=== PATIENT | female | born 1950 | race Caucasian/White ===

== ENCOUNTER → 2016-04-28 | Outpatient (CLI) | payer OTHER | LOC: FIMAGING 15:14 | PROVIDERS: ATTEND Physician Assistant | DX: R06.02 Shortness of breath (principal); R91.1 Solitary pulmonary nodule; C43.9 Malignant melanoma of skin, unspecified ==

== ENCOUNTER → 2016-05-31 | Outpatient (CLI) | payer OTHER | LOC: FIMAGING 12:59 | PROVIDERS: ATTEND Nurse Practitioner | DX: R06.02 Shortness of breath (principal); R91.1 Solitary pulmonary nodule; Z85.820 Personal history of malignant melanoma of skin; Z79.52 Long term (current) use of systemic steroids ==

== ENCOUNTER 2016-09-24 05:53 | Inpatient (IN) | payer OTHER ==
[2016-09-24] MEDS ORDERED: GADOBUTROL 10 ML VIAL IVP ONE (06:04)
[2016-09-24] MEDS ORDERED: LR 1,000 ML IV ONE (06:12)
[2016-09-24] MEDS ORDERED: LIDOCAINE 1% 2 ML INJ ID PRN (06:12)
[2016-09-24 06:54] LABS: % IMMATURE GRANULYOCYTES 0.2 % (0.0-1.1); ABSOLUTE IMMATURE GRANULOCYTES 0.01 10^3/uL (0.00-0.10); ADD DIFF? NO; ADD MORPH? NO; ADD SCAN? NO; ATYPICAL LYMPHOCYTE FLAG 10 (0-99); FRAGMENT RBC FLAG 0 (0-99); HEMATOCRIT 40.2 % (38.0-47.0); HEMOGLOBIN 13.8 g/dL (12.6-16.3); LEFT SHIFT FLG 0 (0-99); LIPEMIA HEMOLYSIS FLAG 90 (0-99); MEAN CELL HEMOGLOBIN 30.7 pg (27.9-34.1); MEAN CELL HEMOGLOBIN CONCENTR. 34.3 g/dL (32.4-36.7); MEAN CELL VOLUME 89.5 fL (81.5-99.8); PLATELET CLUMPS FLAG 10 (0-99); PLATELET COUNT 163 10^3/uL (150-400); RED BLOOD CELL COUNT 4.49 10^6/uL (4.18-5.33); RED CELL DISTRIBUTION WIDTH 12.6 % (11.5-15.2)
[2016-09-24] MEDS ORDERED: CEFUROXIME 1,500 MG in NS 50 ML IV ONE (07:00)
[2016-09-24 07:02] LABS: INR 1.01 (0.83-1.16); PROTIME(PATIENT) 13.2 SEC (12.0-15.0)
[2016-09-24 07:03] LABS: APTT 27.1 SEC (23.0-38.0)
[2016-09-24 07:19] LABS: ANION GAP 11 mEq/L (8-16); CALCIUM 9.6 mg/dL (8.5-10.4); CARBON DIOXIDE 24 mEq/l (22-31); CHLORIDE 109 mEq/L (97-110); CREATININE 0.7 mg/dL (0.6-1.0); GLOMERULAR FILTRATION RATE > 60; GLUCOSE 86 mg/dL (70-100); POTASSIUM 3.9 mEq/L (3.5-5.2); SODIUM 144 mEq/L (134-144)
[2016-09-24] MEDS ORDERED: MANNITOL 20% 100 GM/500 ML BAG IV ONE (07:21)
[2016-09-24] MEDS ORDERED: THROMBIN (BOVINE) 20,000 UNIT VIAL TP ONE (07:21)
[2016-09-24] MEDS ORDERED: BACITRACIN 50,000 UNITS/10 ML SYR IRR ONE (07:22)
[2016-09-24] MEDS ORDERED: BUPIVACAINE/EPI 0.25% 30 ML SDV ONE (07:22)
[2016-09-24] MEDS ORDERED: AVITENE POWDER 1 GM JAR TP ONE (07:22)
[2016-09-24] MEDS ORDERED: MIDAZOLAM 2 MG/2 ML VIAL IVP ONE (08:20)
--- NOTE | 2016-09-24 08:20 | PDANEPAE ---
ANE History of Present Illness Posterior fossa craniotomy for metastatic melanoma ANE Past Medical History - Cardiovascular History Hx Hypertension: Yes Hx Arrhythmias: No Hx Chest Pain: No Hx Coronary Artery / Peripheral Vascular Disease: No Hx CHF / Valvular Disease: No Hx Palpitations: No Cardiovascular History Comment: pcp monitors bp meds - Pulmonary History Hx COPD: No Hx Asthma/Reactive Airway Disease: No Hx Recent Upper Respiratory Infection: No Hx Oxygen in Use at Home: No Hx Sleep Apnea: No Sleep Apnea Screening Result - Last Documented: Negative Pulmonary History Comment: current tumor in lung - Neurologic History Hx Cerebrovascular Accident: No Hx Seizures: No Hx Dementia: No Neurologic History Comment: hx of cervical fusion. current brain lesion - Endocrine History Hx Diabetes: No - Renal History Hx Renal Disorders: No - Liver History Hx Hepatic Disorders: No Hepatic History Comment: DX abn growth 08/22/14 - Neurological & Psychiatric Hx Hx Neurological and Psychiatric Disorders: Yes Neurological / Psychiatric History Comment: Anxiety. Depression - Cancer History Hx Cancer: Yes Cancer History Comment: Melanoma & basal face-surgery to remove. metastatic melanoma - Congenital Disorder History Hx Congenital Disorders: No - GI History Hx Gastrointestinal Disorders: No - Other Health History Other Health History: wears reading glasses still - Chronic Pain History Chronic Pain: No - Surgical History Prior Surgeries: 2 weeks ago bilateral cataracts. Cervical fusion. ORIF R wrist. MOHS x3 to nose with 2 reconstructive surg. R eyelid surg for CA - brain tumor removed ANE Review of Systems - Exercise capacity METS (RN): 4 METS ANE Patient History - Allergies Allergies/Adverse Reactions: ampicillin [Ampicillin] Allergy (Verified 09/20/16 10:13) Rash erythromycin base Allergy (Verified 09/20/16 10:13) UPSET STOMACH nitrofurantoin [From Macrobid] Allergy (Verified 09/20/16 10:13) Rash - Home Medications Home medications: home medication list seen and reviewed Home Medications: Metoprolol Succinate Xr [Toprol Xl 25 mg (*)] 12.5 mg PO DAILY 08/23/10 [Last Taken 09/23/16 19:00] LORazepam [Ativan (*)] 0.5 - 1 mg PO Q6 PRN 08/26/14 [Last Taken 09/24/16 02:30] Cholecalciferol Vit D3 [Vitamin D3 2000 units tab (OTC)] 2,000 units PO DAILY [Last Taken 09/21/16] Herbals/Supplements -Info Only 1 ea PO DAILY 09/20/16 [Last Taken 09/21/16] Magnesium Oxide [Magnesium Oxide 400 mg (*)] 400 mg PO DAILY 09/20/16 [Last Taken 09/21/16] [place]-3 Fatty Acids [Fish Oil 1000 mg (*)] 1,000 mg PO DAILY 09/20/16 [Last Taken 09/17/16] Vitamin B Complex [B Complex] 1 each PO DAILY 09/20/16 [Last Taken 09/21/16] - NPO status NPO Status: no food or drink >8 hours NPO Since - Liquids (Date): 09/23/16 NPO Since - Liquids (Time): 22:00 NPO Since - Solids (Date): 09/23/16 NPO Since - Solids (Time): 20:00 - Anes Hx Anes Hx: no prior problems - Smoking Hx Smoking Status: Never smoked - Family Anes Hx Family Anes Hx: none Family Hx Anesthesia Complications: none ANE Labs/Vital Signs - Labs Result Diagrams: 09/24/16 06:35 09/24/16 06:35 - Vital Signs Blood Pressure: 132/84 Heart Rate: 63 Respiratory Rate: 15 O2 Sat (%): 98 Height: 165.1 cm Weight: 51.256 kg ANE Physical Exam - Airway Neck exam: FROM Mallampati Score: Class 1 Mouth exam: normal dental/mouth exam - Pulmonary Pulmonary: no respiratory distress - Cardiovascular Cardiovascular: regular rate and rhythym - ASA Status ASA Status: III ANE Anesthesia Plan Anesthesia Plan: general endotracheal anesthesia Lines/Monitors: arterial line
[2016-09-24] MEDS ORDERED: GENTAMICIN SULFATE 80 MG/2 ML VIAL ONE ×2 (11:07→13:35)
--- NOTE | 2016-09-24 11:27 | PDHPUP ---
History & Physical Update H&P update statement: This history and physical update is based on an assessment of the patient which was completed after admission or registration (within 24 hours), but prior to the surgery/procedure.
[2016-09-24] MEDS ORDERED: MIDAZOLAM 2 MG/2 ML VIAL ONE ×2 (11:32→15:02)
[2016-09-24] MEDS ORDERED: ONDANSETRON 4 MG/2 ML VIAL ONE ×2 (11:39→14:35)
[2016-09-24] MEDS ORDERED: fentaNYL 100 MCG/2 ML INJ ONE ×2 (11:39→14:30)
[2016-09-24] MEDS ORDERED: ROCURONIUM 50 MG/5 ML VIAL ONE (11:39)
[2016-09-24] MEDS ORDERED: LIDOCAINE 2% 100 MG/5 ML SYR ONE (11:39)
[2016-09-24] MEDS ORDERED: DEXAMETHASONE 4 MG/ML VIAL ONE (11:39)
[2016-09-24] MEDS ORDERED: PROPOFOL 200 MG/20 ML VIAL ONE (11:40)
[2016-09-24] MEDS ORDERED: HYDROmorphONE/DILAUDID 2 MG/ML INJ ONE (11:40)
[2016-09-24] MEDS ORDERED: PROPOFOL/EMULSION 500 MG/50 ML BOTTLE IV ONE (11:40)
[2016-09-24] MEDS ORDERED: REMIFENTANIL HCL 1 MG VIAL ONE (11:40)
[2016-09-24] MEDS ORDERED: PHENYLEPHRINE HCL 100 MCG/ML SYR ONE (11:54)
[2016-09-24] MEDS ORDERED: HYDROCODONE/APAP 5/325 TAB PO PRN (13:45)
[2016-09-24] MEDS ORDERED: DEXAMETHASONE 4 MG/ML VIAL IVP PRN (13:45)
[2016-09-24] MEDS ORDERED: HYDROmorphONE/DILAUDID 1 MG/ML SYR IVP PRN ×2 (13:45→14:20)
[2016-09-24] MEDS ORDERED: ACETAMINOPHEN 500 MG TAB PO PRN (13:45)
[2016-09-24] MEDS ORDERED: PROMETHAZINE HCL 25 MG/ML INJ IVP PRN (13:45)
[2016-09-24] MEDS ORDERED: NALOXONE HCL 0.4 MG/ML INJ IVP PRN (13:45)
[2016-09-24] MEDS ORDERED: OXYCODONE/APAP 5/325 TAB PO PRN (13:45)
[2016-09-24] MEDS ORDERED: ONDANSETRON 4 MG/2 ML VIAL IVP PRN (13:45)
--- NOTE | 2016-09-24 13:45 | POSTANESTH ---
Post Anesthetic Evaluation Cardiovascular Status: Normal, Stable, Similar to Pre-Op Cond Respiratory Status: Normal, Stable, Similar to Pre-op Cond. Level of Consciousness/Mental Status: Can Participate in Eval, Mildly Sleepy, Arousable Pain Control: Inadeq, Add Tx Required Nausea/Vomiting Control: Adequate, Prn Tx Ordered
[2016-09-24] MEDS ORDERED: LACTULOSE 20 GM/30 ML UDCUP PO PRN (14:20)
[2016-09-24] MEDS ORDERED: MAGNESIUM HYDROXIDE 30 ML UDCUP PO PRN (14:20)
[2016-09-24] MEDS ORDERED: POLYETHYLENE GLYCOL 3350 17 GM PKT PO PRN (14:20)
[2016-09-24] MEDS ORDERED: BISACODYL 10 MG SUPP PR PRN (14:20)
[2016-09-24] MEDS ORDERED: NS W/ 20 KCl/L 1,000 ML IV SCH (14:30)
[2016-09-24] MEDS: fentaNYL 100 MCG/2 ML INJ IVP PRN ×2 (14:32→14:47)
--- NOTE | 2016-09-24 14:34 | GOP ---
[f rep st] OPERATIVE REPORT DATE OF OPERATION: 09/24/2016 SURGEON: Cindi Kerr DO CELL RELINER: Avelina Jc PA-C. PREOPERATIVE DIAGNOSIS: Left occipital brain mass. POSTOPERATIVE DIAGNOSIS: Left occipital brain mass. PROCEDURE PERFORMED: Left stereotactic craniotomy, resection of mass, Stealth stereotaxis. FINDINGS: SPECIMENS: Frozen and permanent to Pathology. ESTIMATED BLOOD LOSS: 75 mL INDICATIONS: This is a 66-year-old female with metastatic melanoma. Approximately 2 years ago, she had a resection of an occipital mass, and was subsequently treated with immunotherapy and radiation . She is 24 months postradiation, and has an enhancing lesion that has been slowly growing in that region with significant peritumoral edema surrounding. She was taken to our Tumor Board, as the que stion was whether or not this was radiation necrosis versus recurrence. It was determined that she should return for resection, as biopsy would not likely be revelatory. She elected to move forward with surgical resection. She was identified, consented. Sites were marked. DESCRIPTION OF PROCEDURE: Brought to the operating room, anesthetized under general endotracheal tu be anesthesia. Head was placed in a [place] head of operation and logistics to 80 pounds of pressure. She was rolled prone onto the OR table with chest rolls. All pressure points were appropriately padded. The Steal th was registered to 1.7 mm of accuracy and verified for its accuracy, and then hair was clipped wit h the OR clippers. The previous incision was marked with a pen. She was prepped and draped in the usual sterile fashion. Incision was opened with a 10 blade, and using the periosteal and the Bovie, we were able to retract the scalp and galea off the previous craniotomy flap, placing Dm clips o n the scalp for hemostasis. The plates and screws were removed, and the bone had actually grown acr oss portions of the craniotomy flap. So, a router was used to drill through the bone, and this was extended with 3 Kerrisons until we were able to remove the bone flap. Then, using a wire pass, plac ed dural tack-up stitches with 4-0 Nurolon. We then opened the dura in an area right over the prese ntation of the tumor, where it was particularly thin and extended this with Metzenbaum scissors, ret racting it medially. Then, using the Stealth stereotaxis, located the area where the enhancing mass presented itself to the surface. There was no obvious discoloration, consistent with melanoma. Th en using the bipolar and microscissors, we resected a piece of the mass and sent it for frozen. The frozen did return as some melanotic cells, unsure whether or not they were viable. Significant dre unt of macrophages. Unable to tell whether this is recurrence or radiation necrosis. Then using th e bipolar and the [place] 1 as a leukotome, we resected the vast majority of the bulk of the mass a nd sent it for permanent staining. Then, using the ultrasonic aspirator, encircling the remainder o f the mass and using Stealth stereotaxis to guide our resection edges, we resected the remainder of what we believed to be the enhancing portion of the tumor or mass until we had it completely radiogr aphically resected. We then used Gel-Foam, Avitene to obtain meticulous hemostasis. Once meticulou s hemostasis had been obtained, we irrigated with over a liter of gentamicin-infused saline. When t he saline irrigation was completely clear and meticulous hemostasis had been obtained, we lined the cavity with Surgicel. Once we lined the cavity with Surgicel, we reapproximated the dura with 4-0 N urolon. However, the dural consistency was very poor and was unable to obtain a watertight closure, given the previous radiation and surgery. So, we created a scaffolding with 4-0 Nurolon and then u sed DuraGen to cover the entire area. We replaced the bone flap with Synthes plates and 4 mm screws . Copiously irrigated with another liter of gentamicin-infused saline, "trocar'd" a drain out later ally and superiorly, placed it in the subgaleal space, closed the galea with 2-0 Vicryl pop-offs. T he skin was closed with a 3-0 running nylon. The drain was sutured in with a 2-0 Vicryl pop-off erwin sabrina to bulb suction. The wound was dressed with Xeroform and Telfa stapled down. Patient was remov ed from the [place] head of operation and logistics, tolerated procedure well. There were no complications. FLUIDS REPLACED: Crystalloid 1400 mL. URINE OUTPUT: 100 mL. DRAINS: One MOHINDER in the subgaleal space to bulb suction. /[id number]/MODL
[2016-09-24] MEDS ORDERED: LABETALOL HCL 50 MG/10 ML SYR ONE (14:35)
[2016-09-24] MEDS ORDERED: LABETALOL HCL 50 MG/10 ML SYR IVP PRN (14:37)
[2016-09-24] MEDS ORDERED: LABETALOL HCL 5 MG/ML 20 ML MDV IVP ONE (14:42)
--- NOTE | 2016-09-24 14:42 | POSTOPPROG ---
Post Op Note Date of Operation: 09/24/16 Surgeon: Elodia Mir Set Up Mechanic Crown [employer] Machine: Trudi Sanabria Anesthesia: GET(General Endotracheal) Pre-op Diagnosis: Left Occipital Mass Post-op Diagnosis: Left Occipital Mass Procedure: Left Craniotomy Inf/Abcess present in the surg proc area at time of surgery?: No Depth: Deep Incisional (Fascial) EBL: 50-100 Total fluids administered: see anesthesia Drains: Shiv Yadav Date of Surgery: 09/24/16 Post Op Day: 0 Assessment/Plan: 66 yr old female s/p left craniotomy for resection of left occipital mass POD#0 Plan: -Keep SBP <140 -Subgaleal MOHINDER in place -Keep HOB elevated >30 -MRI brain in am -Keppra x 1 week -Decadron 4mg Q6 x48 hrs, then taper for 7 days -Follow path results -Lovenox POD#3 -Follow neuro exam -Call neurosurgery with any questions or concerns Subjective: Patient waking up in PACU, happy she is not blind Objective: AxO x3 EOMI-patient had pre op right eye visual field cut-patient states right eye vision remains intact when testing with left eye closure PERRLA Facial expression symmetrical Speech fluent Muscle strength full at 5/5 Sensation intact Neuro Check Frequency: per routine Urinary Catheter in Place: Yes Urinary Catheter Indication: Surgical Requirement
[2016-09-24] MEDS ORDERED: LABETALOL HCL 5 MG/ML 20 ML MDV IVP PRN (14:44)
[2016-09-24] MEDS: niCARdipine/NACL 200 ML IV PRN ×2 (14:52→15:15)
[2016-09-24] MEDS: DEXAMETHASONE 4 MG TAB PO SCH ×2 (18:06→23:05)
[2016-09-24] MEDS: ONDANSETRON 4 MG/2 ML VIAL IVP PRN ×2 (19:00→23:05)
[2016-09-24] MEDS: CEFUROXIME 1,500 MG in NS 50 ML IV SCH (19:13)
[2016-09-24] MEDS: SENNOSIDES/DOCUSATE SODIUM TAB PO SCH (19:14)
[2016-09-24] MEDS: ACETAMINOPHEN 325 MG TAB PO PRN (19:15)
[2016-09-24] MEDS: levETIRAcetam 250 MG TAB PO SCH (19:15)
[2016-09-24] MEDS: OXYCODONE/APAP 5/325 TAB PO PRN (21:08)
[2016-09-25] MEDS: OXYCODONE/APAP 5/325 TAB PO PRN (04:07)
[2016-09-25] MEDS: ONDANSETRON 4 MG/2 ML VIAL IVP PRN (04:07)
[2016-09-25] MEDS: CEFUROXIME 1,500 MG in NS 50 ML IV SCH (04:08)
[2016-09-25 04:29] LABS: % IMMATURE GRANULYOCYTES 0.2 % (0.0-1.1); ABSOLUTE IMMATURE GRANULOCYTES 0.01 10^3/uL (0.00-0.10); ADD DIFF? NO; ADD MORPH? NO; ADD SCAN? NO; ATYPICAL LYMPHOCYTE FLAG 0 (0-99); FRAGMENT RBC FLAG 0 (0-99); HEMATOCRIT 38.3 % (38.0-47.0); HEMOGLOBIN 13.1 g/dL (12.6-16.3); LEFT SHIFT FLG 20 (0-99); LIPEMIA HEMOLYSIS FLAG 90 (0-99); MEAN CELL HEMOGLOBIN 30.6 pg (27.9-34.1); MEAN CELL HEMOGLOBIN CONCENTR. 34.2 g/dL (32.4-36.7); MEAN CELL VOLUME 89.5 fL (81.5-99.8); MEAN PLATELET VOLUME 10.6 fL (8.7-11.7); PLATELET CLUMPS FLAG 0 (0-99); PLATELET COUNT 160 10^3/uL (150-400); RED BLOOD CELL COUNT 4.28 10^6/uL (4.18-5.33); RED CELL DISTRIBUTION WIDTH 12.6 % (11.5-15.2)
[2016-09-25] MEDS ORDERED: LORazepam 0.5 MG TAB ONE (04:29)
[2016-09-25] MEDS: DEXAMETHASONE 4 MG TAB PO SCH ×4 (04:30→23:22)
[2016-09-25] MEDS: LORazepam 1 MG TAB PO PRN (04:32)
[2016-09-25 04:56] LABS: ANION GAP 12 mEq/L (8-16); CALCIUM 9.6 mg/dL (8.5-10.4); CARBON DIOXIDE 21 mEq/l (22-31); CHLORIDE 107 mEq/L (97-110); CREATININE 0.6 mg/dL (0.6-1.0); GLOMERULAR FILTRATION RATE > 60; GLUCOSE 142 mg/dL (70-100); POTASSIUM 4.4 mEq/L (3.5-5.2); SODIUM 140 mEq/L (134-144)
[2016-09-25] MEDS: levETIRAcetam 250 MG TAB PO SCH ×2 (08:38→20:10)
[2016-09-25] MEDS: MAGNESIUM OXIDE 400 MG TAB PO SCH (08:38)
[2016-09-25] MEDS: METOPROLOL SUCCINATE XR 25 MG TAB PO SCH (08:39)
[2016-09-25] MEDS: SENNOSIDES/DOCUSATE SODIUM TAB PO SCH ×2 (08:40→20:10)
[2016-09-25] MEDS: ACETAMINOPHEN 325 MG TAB PO PRN ×3 (10:07→21:12)
--- NOTE | 2016-09-25 11:18 | NEUSURGPN ---
Date of Surgery: 09/24/16 Post Op Day: 1 Assessment/Plan: 66 yr old female s/p left craniotomy for resection of left occipital mass POD#1 Plan: -Keep SBP <140 -Subgaleal MOHINDER in place -Keep HOB elevated >30 -MRI brain pending -May transfer to floor pending MRI results -Keppra x 1 week -Decadron 4mg Q6 x48 hrs, then taper for 7 days -Follow path results -Lovenox POD#3 -Follow neuro exam -Call neurosurgery with any questions or concerns Patient seen by Dr Jin as well Subjective: Patient doing well this am, happy vision is intact-baseline Objective: AxO x3 EOMI-patient had pre op right eye visual field cut-patient states right eye vision remains intact when testing with left eye closure PERRLA Facial expression symmetrical Speech fluent Muscle strength full at 5/5 Sensation intact Neuro Check Frequency: per routine Urinary Catheter in Place: No Catheter Insertion Date: 09/24/16 - Physician Discussed Patient with : Usha Patient Seen by : Annabel Neurosurgery Physical Exam - Vitals, I&O, Labs I and O 09/24/16 09/25/16 09/26/16 05:59 05:59 05:59 Intake Total 3371 Output Total 2690 Balance 681 Weight 51.256 kg Intake: Oral (ml) 620 IV Intake (ml) 1400 IV Infused (ml) 1351 NS W/ 20 KCl/L 1,000 ml @ 1206 100 mls/hr IV CONT STEVE Rx#:[id number] niCARdipine/NACL 200 ml @ 145 Titrate IV PRN PRN Rx#: [id number] Output: Urine (ml) 2425 Catheter 2425 Estimated Blood Loss (ml) 75 MOHINDER Drain Output (ml) 190 Posterior Head 190 Other: Intake Quantity Yes Sufficient Number of Stools Catheter 0 Vital Signs Temp Pulse Resp BP Pulse Ox 36.4 C 86 17 138/70 H 97 09/25/16 04:00 09/25/16 10:00 09/25/16 10:00 09/25/16 10:00 09/25/16 10:00 Laboratory Results 09/25/16 04:15 09/25/16 04:15 ICD10 Worksheet Patient Problems: Problems Problem Status Onset Brain tumor Acute
[2016-09-26] MEDS: ACETAMINOPHEN 325 MG TAB PO PRN ×2 (05:08→10:02)
[2016-09-26] MEDS: DEXAMETHASONE 4 MG TAB PO SCH ×3 (05:09→21:29)
--- NOTE | 2016-09-26 06:55 | NEUSURGPN ---
Date of Surgery: 09/24/16 Post Op Day: 2 Assessment/Plan: Assessment: 66 yr old female s/p left craniotomy for resection of left occipital mass POD #2 Plan: -Keep SBP <140 -Subgaleal MOHINDER in place-will touch base with Dr Kerr when she wants to pull drain -Keep HOB elevated >30 -MRI brain done shows stable findings with some residual ?tumor vs necrosis -Pt is floor status right now -Keppra x 1 week -Decadron 4mg Q6 x48 hrs, taper for 7 days ordered -Follow path results -Lovenox POD#3 -Follow neuro exam -Call neurosurgery with any questions or concerns -d/w Dr Jin as well Subjective: Awake and alert. NAD. Eating/drinking and voiding. No f/c/n/v/d. No neck/ chest/abd or gu complaints. Objective: AxO x3 EOMI-patient had pre op right eye visual field cut-patient states right eye vision remains intact when testing with left eye closure PERRLA Facial expression symmetrical Speech fluent Muscle strength full at 5/5 Sensation intact Neuro Check Frequency: per routine Urinary Catheter in Place: No Catheter Insertion Date: 09/24/16 - Physician Discussed Patient with : Annabel Neurosurgery Physical Exam - Vitals, I&O, Labs I and O 09/25/16 09/26/16 09/27/16 05:59 05:59 05:59 Intake Total 3371 2000 Output Total 2690 1065 Balance 681 935 Weight 51.256 kg Intake: Oral (ml) 620 2000 IV Intake (ml) 1400 IV Infused (ml) 1351 NS W/ 20 KCl/L 1,000 ml @ 1206 100 mls/hr IV CONT STEVE Rx#:[id number] niCARdipine/NACL 200 ml @ 145 Titrate IV PRN PRN Rx#: [id number] Output: Urine (ml) 2425 965 Catheter 2425 290 Toilet 675 Estimated Blood Loss (ml) 75 MOHINDER Drain Output (ml) 190 100 Posterior Head 190 100 Other: Intake Quantity Yes Sufficient Number of Voids Toilet 1 Number of Stools Catheter 0 Vital Signs Temp Pulse Resp BP Pulse Ox 36.6 C 69 18 131/74 H 95 09/26/16 05:00 09/26/16 05:00 09/26/16 05:00 09/26/16 05:00 09/26/16 05:00 Laboratory Results 09/25/16 04:15 09/25/16 04:15 ICD10 Worksheet Patient Problems: Problems Problem Status Onset Brain tumor Acute
[2016-09-26] MEDS: LORazepam 1 MG TAB PO PRN (07:09)
[2016-09-26] MEDS ORDERED: *MD ORDERING ONLY-DEXAMETHASONE TAPER IVP/PO SCH (07:15)
[2016-09-26] MEDS: METOPROLOL SUCCINATE XR 25 MG TAB PO SCH (08:38)
[2016-09-26] MEDS: SENNOSIDES/DOCUSATE SODIUM TAB PO SCH ×2 (08:38→21:29)
[2016-09-26] MEDS: levETIRAcetam 250 MG TAB PO SCH ×2 (08:38→21:29)
[2016-09-26] MEDS: MAGNESIUM OXIDE 400 MG TAB PO SCH (08:39)
[2016-09-27] MEDS: DEXAMETHASONE 4 MG TAB PO SCH (04:22)
[2016-09-27] MEDS: LORazepam 1 MG TAB PO PRN (04:22)
[2016-09-27] MEDS ORDERED: ENOXAPARIN 40 MG/0.4 ML SYR SC SCH (09:00)
[2016-09-27] MEDS: MAGNESIUM OXIDE 400 MG TAB PO SCH (09:20)
[2016-09-27] MEDS: METOPROLOL SUCCINATE XR 25 MG TAB PO SCH (09:20)
[2016-09-27] MEDS: levETIRAcetam 250 MG TAB PO SCH (09:21)
[2016-09-27] MEDS: SENNOSIDES/DOCUSATE SODIUM TAB PO SCH (09:21)
[2016-09-27 09:22] VITALS: BP 121/72; PULSE 52
[2016-09-27 09:26] VITALS: RESP 12; TEMP 97.7; O2SAT 97
--- NOTE | 2016-09-27 11:13 | SOAPPROG ---
SRAVAN Progress Note Assessment/Plan: Assessment: 66 yo F sp redo craniotomy for resection of recurrent lesion Plan: stable PT/OT dc home today follow up with Dr Kerr in 10-14 days please call with neuro changes 09/27/16 11:12 Subjective: no headaches, no N/V. Objective: Vital Signs Temp Pulse Resp BP Pulse Ox 36.5 C 52 L 12 121/72 H 97 09/27/16 08:00 09/27/16 09:20 09/27/16 08:00 09/27/16 09:20 09/27/16 08:00 Laboratory Results 09/25/16 04:15 09/25/16 04:15 09/26/16 09/27/16 09/28/16 05:59 05:59 05:59 Intake Total 2000 1000 Output Total 1065 Balance 935 1000 PT 13.2 SEC (12.0-15.0) 09/24/16 06:35 INR 1.01 (0.83-1.16) 09/24/16 06:35 AAOX4, +FC PERRL, EOMI, no facial droop 5/5 + light touch C/D/I ICD10 Worksheet Patient Problems: Problems Problem Status Onset Brain tumor Acute
[2016-09-27] MEDS ORDERED: DEXAMETHASONE 4 MG TAB PO SCH (21:00)
[2016-09-28] MEDS ORDERED: DEXAMETHASONE 2 MG TAB PO SCH (21:00)
[2016-10-01] MEDS ORDERED: DEXAMETHASONE 2 MG TAB PO SCH (09:00)
--- NOTE | 2016-10-21 18:15 | GDS ---
[f rep st] DISCHARGE SUMMARY ADMITTING DIAGNOSES: 1. Left occipital brain mass. 2. History of metastatic melanoma. DISCHARGE DIAGNOSES: 1. Left occipital brain mass. 2. History of metastatic melanoma. PROCEDURE: Left stereotactic craniotomy for resection of mass. HOSPITAL COURSE: The patient is a 66-year-old female with metastatic melanoma with a history of a c raniotomy for resection of occipital mass 2 years ago. She is now 24 months post radiation and has an enhancing lesion that has been slowly growing. It was, therefore, elected to proceed with surgic al intervention for resection and biopsy to determine if the mass is radiation necrosis versus recur rence. Patient underwent surgery by Dr. Cindi Kerr on September 24, 2016, with a left stereotactic upholstered goods crafter niotomy for resection of mass. She tolerated the surgery well without complication and was transfer red to the intensive care unit for close neurological checks and pain control. Postoperative brain MRI demonstrated residual tumor suspected along the anterolateral margin with resection of the remai angel tumor. Moderate vasogenic edema persists around the tumor resection. Scattered foci of hemosi venkat on the right as detailed above possibly from underlying vascular malformations versus unilater ally amyloidosis. Once patient was stable, she was transferred to the floor. She was seen by Physi steve and Occupational Therapy. Pathology returned as radiation necrosis. No malignancy found. Once the patient was tolerating a diet, voiding without difficulty, pain controlled, and medically stabl e, she was deemed suitable for discharge. She was discharged to home on September 27. DISCHARGE MEDICATIONS: Acetaminophen, Decadron taper, tramadol, Keppra 750 mg twice daily. FOLLOWUP: Patient was instructed to follow up with Dr. Cindi Kerr in 2 weeks. /[id number]/MODL
== END 2016-09-27 11:26 | disposition home or self-care (01) | DRG 25 ==
LOC: F3N 05:53 → EDSTATUS 10:15 → F2N 15:45
PROVIDERS: ADMIT Neurological Surgery; ATTEND Neurological Surgery
PROC: 00B00ZX Excision of Brain, Open Approach, Diagnostic (ICD-10-PCS; principal; 2016-09-24 10:15)
DX: D49.6 Neoplasm of unspecified behavior of brain (principal); G93.6 Cerebral edema; Z85.841 Personal history of malignant neoplasm of brain; Z85.820 Personal history of malignant melanoma of skin; Z92.3 Personal history of irradiation
CPT/HCPCS: 92523-GN; 97110-GP; 97116-GP; 97161-GP; 97166-GO; 97530-GO; 97535-GO; A9585; C1713; G8978-GP-CI; G8979-GP-CI; G8980-GP-CI; G8987-GO-CJ; G8988-GO-CI; G8989-GO-CI; G9168-GN-CH; G9169-GN-CH; G9170-GN-CH; J0697; J1100; J1170; J1650; J2001; J2250; J2370; J2405; J2704; J3010; J3490

== ENCOUNTER → 2017-07-12 | Outpatient (CLI) | payer OTHER | LOC: CIMAGING 09:47 | PROVIDERS: ATTEND Internal Medicine Hematology & Oncology | DX: Z12.31 Encounter for screening mammogram for malignant neoplasm of breast (principal) ==

== ENCOUNTER → 2017-07-28 | Outpatient (CLI) | payer OTHER | LOC: CIMAGING 12:35 | PROVIDERS: ATTEND Internal Medicine Hematology & Oncology | DX: R92.8 Other abnormal and inconclusive findings on diagnostic imaging of breast (principal) ==